=== PATIENT | male | born 1965 | race Caucasian/White ===

== ENCOUNTER 2021-07-10 10:57 | Outpatient (REF) | payer BC, SELFPAY | END 2021-07-10 10:58 | disposition home or self-care (01) | LOC: HO.WFDLDS 10:57 | PROVIDERS: Visit Provider Internal Medicine | DX: Z20.822 Contact with and (suspected) exposure to COVID-19 (principal) | CPT/HCPCS: C9803; U0003; U0005 ==

== ENCOUNTER 2024-12-29 07:29 | Day surgery (SDC) | payer BC, SELFPAY ==
--- OUTSIDE RECORDS SUMMARY | 2024-12-01 14:53 | XMS_ITS | Patient Health Record ---
Author Organization [facility] Address [address] [place] [address] Care Team Providers Care Guest Services Assistant Name Role Phone Geovanni LUCAS, Mango Primary Care Provider Unavailab Rogers Escobar Jr Unavailable Allergies Allergen (clinical drug ingredient) Drug/Non Drug Allergy documented on EMR Reaction Allergy Type Onset Date Status peanut allergenic extract Peanut (Diagnostic) Unknown Drug Allergy Active Reason For Referral Referring Provider First Name Mango Referring Provider Last Name Geovanni Referring Provider Speciality Internal M edicine Referred Organization [facility] Referred Provider Rogers Rojas Jr Referred Address [address] [facility],[place], [place],[address],[place] Referred Provider Specialty Gastroentero logy General Notes Gisele Fernandez 024 01:10:28 PM EST > called pt and requested he contact dr reid for an hmo blue referral for his visit with Dr. Rojas on 08-17-2023, Gisele Fernandez 07/21/2024 04:07:18 PM EST > REQUESTED HMO BLUE REFERRAL FROM DR REID'S OFFICE FOR VISIT WITH BOB Referral Priority Routine Referring Provider First Name Mango Referring Provider Last Name Geovanni Referring Provider Speciality Internal M edicine Referred Organization [facility] Referred Provider Rogers Rojas Jr Referred Address [address] [facility],[address],[place], [place],[address],[place] Referred Provider Specialty Gastroentero logy General Notes Gisele Fernandez 2024 01:56:46 PM >requested a new hmo blue referral from Dr. Reid for the appt on 11-30-[address] Rojas current ref expires 11-15-24, Jim Gisele 11/10/2024 10:32:47 AM >They stated they will fax a copy of the new referral which i am not able to retrieve in the bc/bs website, Jim Gisele 11/16/2024 10:16:27 AM > Dr. Reid's office sent an office referral and not an o blue referral. Spoke with Zaid and requested again Referral Priority Routine Medications Medication SIG (Take, Route, Frequency, Duration) Notes Start Date End Date Status amLODIPine Besylate 2.5 MG 1 tablet Orally Once a day Active Omeprazole 20 MG 1 capsule 1/2 to 1 h our before morning meal Orally Once a day as needed Active Immunizations Vaccine Route Administration Date Status Comme nts Influenza Unknown 11/30/2024 Refused Influenza Unknown 11/30/2024 Refused Social History Tobacco Use: Social History Observation Description Date Details (start date - stop date) Never Smoker NA - NA Tobacco Control (Standard) Question Answer Notes Tobacco use: Nonsmoker AUDIT-C (Standard) Question Answer Notes Did you have a drink contain ing alcohol in the past year? Yes How often did you have a dri nk containing alcohol in the past year? 2 to 4 times a month (2 points) How many drinks did you have on a typical day when you were drinking in the past year? 1 or 2 drinks (0 point) How often did you have six o r more drinks on one occasion in the past year? Never (0 point) Points 2 Interpretation Negative Problems Problem Type SNOMED Code ICD Code Onset Dates Problem Status W/U Status Risk Notes Problem Colon cancer screening (117609245) Colon cancer screening (Z12.11) Active confirmed Problem Erosive esophagitis (47827673) Erosive esophagitis (K22.10) Active confirmed Problem Gastroesophageal reflux disease (475804506) GERD (gastroesophag eal reflux disease) (K21.9) Active confirmed Problem Personal history of adenomatous and serrated colon polyps (Z86.0101) Active confirmed Vital Signs Temperature 98.7 degrees Fahrenheit 11/30/2024 Blood pressure diastolic 01 mm Hg 11/30/2024 Height 70 in 11/30/2024 Blood pressure systolic 001 mm Hg 11/30/2024 Weight 189 lbs 11/30/2024 BMI 27.12 kg/m2 11/30/2024 Encounters Encounter Location Date Provider Diagnosis [facility] [address] [place] [address] 11/30/2024 Rogers Bob Lozano GERD (gastroesophageal reflux disease) K21.9 ; Colon cancer screening Z12.11 ; Erosive esophagitis K22.10 and Personal history of adenomatous and serrated colon polyps Z86.0101 Assessments Encounter Date Diagnosis (ICD Code) Assessment Notes Treatment Notes Treatment Clinical Notes Section Notes 11/30/2024 Colon cancer screening (ICD-10 - Z12.11) We discussed gastroesophageal reflux disease today we discussed diet, lifestyle modifications, and treatment with proton pump inhibitors. He will continue his present regimen. Follow-up endoscopy will be arranged because of his history of erosive esophagitis to rule out underlying Huang's esophagus. He is due for colonoscopy. He is aware of risks and benefits of both procedures and understands and agrees to proceed. 11/30/2024 GERD (gastroesophage al reflux disease) (ICD-10 - K21.9) We discussed gastroesophageal reflux disease today we discussed diet, lifestyle modifications, and treatment with proton pump inhibitors. He will continue his present regimen. Follow-up endoscopy will be arranged because of his history of erosive esophagitis to rule out underlying Huang's esophagus. He is due for colonoscopy. He is aware of risks and benefits of both procedures and understands and agrees to proceed. 11/30/2024 Erosive esophagitis (ICD-10 - K22.10) We discussed gastroesophageal reflux disease today we discussed diet, lifestyle modifications, and treatment with proton pump inhibitors. He will continue his present regimen. Follow-up endoscopy will be arranged because of his history of erosive esophagitis to rule out underlying Huang's esophagus. He is due for colonoscopy. He is aware of risks and benefits of both procedures and understands and agrees to proceed. 11/30/2024 Personal history of adenomatous and serrated colon polyps (ICD-10 - Z86.0101) We discussed gastroesophageal reflux disease today we discussed diet, lifestyle modifications, and treatment with proton pump inhibitors. He will continue his present regimen. Follow-up endoscopy will be arranged because of his history of erosive esophagitis to rule out underlying Huang's esophagus. He is due for colonoscopy. He is aware of risks and benefits of both procedures and understands and agrees to proceed. Plan Of Treatment Future Test Test Name Order Date UPPER GI ENDOSCOPY 11/30/2024 COLONOSCOPY 11/30/2024 Next Appt Details Provider Name:Rogers Charlee atkinson Jr, 12/29/2024 10:00:00 AM, [address] [place] [address], [phone], Insurance Providers Payer Name Payer Address Payer Phone Subscriber Number Group Number Insured Name Patient Relationship to Insured Coverage Start Date Coverage End Date [facility] [employer] [address] [place] [address] [id number] DENIS GRECO Self - patient is the insured Medical (General) History Medical History History ICD Code high blood pressure Surgical History Surgery Date(Month/Year) back surgery
--- OUTSIDE RECORDS SUMMARY | 2024-12-01 14:53 | XMS_ITS ---
Author Organization [facility] Address [address] [facility] [address] [place] [address] Care Team Providers Care Community Engagement Manager Name Role Phone Mango Galarza MD Primary Care Provider Unavailab jace Rojas Jr, Rogers Unavailable REASON FOR VISIT Patient presents today for a colon recall Encounters Encounter Location Date Provider Diagnosis [facility] [address] [place] [phone] 08/17/2024 Rogers Rojas Jr Plan Of Treatment Next Appt Details Provider Name:Rogers atkinson Jr, 12/29/2024 10:00:00 AM, [address] [place] [address] , [place], [place], [phone], Progress Notes * DENIS GRECO JrDOB:07/1965 (58 yo M)Acc No.[id number]:08/17/2024 Progress Notes Patient:?DENIS GRECO r Provider:?Rogers Rojas MD :1965???Age:58 Y???Sex:Male Geovani e:08/17/2024 Address:[address] [facility] [phone] Pcp:Mango Galarza MD Subjective: * Chief Complaints: * ???1. Patient presents today for a colon recall. * Medical History:? Objective: * Vitals:? Assessment: Plan: * Treatment: * * The named appointment provid er may or may not be the originator of this progress note, and it is not deemed complete until electronically signed by the appointment provider. Sign off status: Pending * Provider:?Rogers Rojas MD Date:?0 08/17/2024 Generated for Ladarius gant/Bayron/Yuridia on:?12/01/2024 02:53 PM EDT
--- OUTSIDE RECORDS SUMMARY | 2024-12-01 14:53 | XMS_ITS ---
Author Organization [facility] Address [address] [place] [address] Care Team Providers Care Registered Pharmacist Name Role Phone Mango Galarza MD Primary Care Provider Unavailab Rogers Escobar Jr Unavailable [phone] Allergies Allergen (clinical drug ingredient) Drug/Non Drug Allergy documented on EMR Reaction Allergy Type Onset Date Status peanut allergenic extract Peanut (Diagnostic) Unknown Drug Allergy Active REASON FOR VISIT Patient presents today for a COLON SCREENING Medications Medication SIG (Take, Route, Frequency, Duration) [...] Problem Status W/U Status Risk Notes Problem Gastroesophageal reflux disease (399518103) GERD (gastroesophag eal reflux disease) (K21.9) Active confirmed Problem Colon cancer screening (737780649) Colon cancer screening (Z12.11) Active confirmed Problem Erosive esophagitis (85466245) Erosive esophagitis (K22.10) Active confirmed Problem Personal history of adenomatous and serrated colon polyps (Z86.0101) Active confirmed Vital Signs Temperature 98.7 degrees Fahrenheit 12/01/19 25 Blood pressure systolic 001 mm Hg 12/01/19 25 Blood pressure diastolic 01 mm Hg 025 Height 70 in 11/30/2024 Weight 189 lbs 11/30/2024 BMI 27.12 kg/m2 11/30/2024 Encounters Encounter Location Date Provider Diagnosis [facility] [address] [place] [address] 11/30/2024 Rogers Rojas Jr GERD (gastroesophageal reflux disease) K21.9 ; Colon cancer screening Z12.11 ; Erosive esophagitis K22.10 and Personal history of adenomatous and serrated colon polyps Z86.0101 Assessments Encounter Date Diagnosis (ICD Code) Assessment Notes Treatment Notes Treatment Clinical Notes Section Notes 11/30/2024 GERD (gastroesophage al reflux disease) (ICD-10 [...] and understands and agrees to proceed. 11/30/2024 Colon cancer screening (ICD-10 - Z12.11) [...] ENDOSCOPY 11/30/2024 COLONOSCOPY 11/30/2024 Next Appt Details Follow Up: 1 Year, Reason: Provider Name:Rogers atkinson Jr, 12/29/2024 10:00:00 AM, [address] [place] [address], [phone], Progress Notes * DENIS GRECO JrDOB:07/1965 (58 yo M)Acc No.[id number]:11/30/2024 Progress Notes Patient:?DENIS GRECO J r Provider:?Rogers Rojas MD :1965???Age:58 Y???Sex:Male Geovani e:11/30/2024 Address:[address] [place], [place] [phone] Pcp:Mango Galarza MD Subjective: * Chief Complaints: * ???1. Patient presents today for a COLON SCREENING. * HPI: ???New symptom(s):? The patient is a pleasant 58-year-old man seen today in consultation at the request of his primary care provider. He has a history of gastroesophageal reflux disease and has been on omeprazole for control of his symptoms for years. He estimates he uses this approximately 10 days/month. He has no complaints of dysphagia, hematemesis, or melena. Spicy foods and soda seem to make symptoms worse. Review of outside records indicate that he had an upper endoscopy with erosive esophagitis, nodule antrum, and normal duodenum. This was done in 2018. Colonoscopy at the same time showed a small polyp. This was a tubular adenoma. Random biopsies were negative for microscopic colitis. We reviewed this today. He has no complaints of rectal bleeding or change in his bowel habits. * ROS:?General/Constitutional:?Change in appetite?denies.?Fatigue?denies.?ENT:?Patient denies?difficulty swallowing.?Respiratory:?Patient denies?shortness of breath.?Cardiovascular:?Patient denies?chest pain.?Gastrointestinal:?Comments?See HPI for details.?Genitourinary:?Difficulty urinating?denies.?Incontinence?denies.?Musculoskeletal:?Patient denies?muscle aches.?Skin:?Patient denies?pruritis.?Neurologic:?Patient denies?low back pain.?Psychiatric:?Patient denies?mental or physical abuse.? * Medical History:?High blood pressure. * Surgical History:?back surge ry . * Family History:?Father: dece ased.?Mother: .? No family history of colon cancer or liver cancer. * Social History:?Tobacco Use:?Tobacco Control (Standard)?Tobacco use:?Nonsmoker.?Miscellaneous:?Marital status: . Occupation: works full-time sales. ???Drug/Alcohol:?AUDIT-C (Standard)?Did you have a drink containing alcohol in the past year??Yes,?How often did you have a drink containing alcohol in the past year??2 to 4 times a month (2 points),?How many drinks did you have on a typical day when you were drinking in the past year??1 or 2 drinks (0 point),?How often did you have six or more drinks on one occasion in the past year??Never (0 point),?Points?2,?Interpretation?Negative.? * Medications:?Taking Omeprazo le 20 MG Capsule Delayed Release 1 capsule 1/2 to 1 hour before morning meal Orally Once a day , Notes to Pharmacist: as needed, Taking amLODIPine Besylate 2.5 MG Tablet 1 tablet Orally Once a day , Medication List reviewed and reconciled with the patient * Allergies:?Peanut (Diagnosti c): Allergy - Criticality High. Objective: * Vitals:?Wt:189lbs, Ht: 70 in , BMI:27.12Index, BP:001/01mm Hg, Temp:98.7, Ht-cm: 177.8, Wt-k.73. * Examination: ???General Examination: ?GENERAL APPEARANCE:?in no acute distress.?HEAD:?normocephalic.?EYES:?sclera non-icteric.?ORAL CAVITY:?mucosa moist.?NECK/THYROID:?no lymphadenopathy.?SKIN:?anicteric.?HEART:?S1, S2 normal, no murmurs.?LUNGS:?clear to auscultation bilaterally.?CHEST:?normal shape and expansion.?ABDOMEN:?soft, nontender, nondistended, bowel sounds present, no organomegaly .?EXTREMITIES:?no clubbing, cyanosis, or edema.?PSYCH:?cognitive function intact.? Assessment: * Assessment: 1.?GERD (gastroesophageal re flux disease) - K21.9 (Primary)???2.?Colon cancer screening - Z12.11???3.?Erosive esophagitis - K22.10???4.?Personal history of adenomatous and serrated colon polyps - Z86.0101??? We discussed gastroesophagea l reflux disease today we discussed diet, lifestyle modifications, and treatment with proton pump inhibitors. He will continue his present regimen. Follow-up endoscopy will be arranged because of his history of erosive esophagitis to rule out underlying Huang's esophagus. He is due for colonoscopy. He is aware of risks and benefits of both procedures and understands and agrees to proceed. Plan: * Treatment: 2.?Colon cancer screening?Procedure: COLONOSCOPY (Ordered for 11/30/2024)* sched for 12/29/24 at 10:00 a mmacmiralax * Immunizations:? Influenza (Not administered - Refused: Patient decision)??? Influenza (Not administered - Refused: Patient decision) * Procedure Codes:?3017F COLOR ECTAL CA SCREEN DOC REV, G9903 Pt scrn tbco id as non user, G8785 BP SCR NOT PRFRM REC REASON NOS * Preventive Medicine:? ??Counseling:?Care goal follow-up plan:?Above Normal BMI Follow-up?Dietary management education, guidance, and counseling,?BMI management provided?Yes.? * Follow Up:?1 Year * * Sign off status: Completed true * Provider:?Rogers Rojas MD Date:?0 11/30/2024 Generated for Ladarius gant/Bayron/eTransmitting on:?12/01/2024 02:53 PM EDT History and Physical Notes * HPI (History of Present Illness) Category Sub-Category Detail Notes Category Not es New symptom(s) The patient is a pleasant 58-year-old man seen today in consultation at the request of his primary care provider. He has a history of gastroesophageal reflux disease and has been on omeprazole for control of his symptoms for years. He estimates he uses this approximately 10 days/month. He has no complaints of dysphagia, hematemesis, or melena. Spicy foods and soda seem to make symptoms worse. Review of outside records indicate that he had an upper endoscopy with erosive esophagitis, nodule antrum, and normal duodenum. This was done in 2018. Colonoscopy at the same time showed a small polyp. This was a tubular adenoma. Random biopsies were negative for microscopic colitis. We reviewed this today. He has no complaints of rectal bleeding or change in his bowel habits. Examination Category Sub-Category Detail Notes Category Not es General Examination GENERAL APPEARANCE: in no acute di stress HEAD: normocephalic EYES: sclera non-icteric NECK/THYROID: no lymphadenopathy HEART: S1, S2 normal, no mu rmurs CHEST: normal shape and exp ansion LUNGS: clear to auscultatio n bilaterally ABDOMEN: soft, nontender, non distended, bowel sounds present, no organomegaly SKIN: anicteric EXTREMITIES: no clubbing, cyanosi s, or edema PSYCH: cognitive function i ntact ORAL CAVITY: mucosa moist
[2024-12-25 14:13] VITALS: BMI 27.1
--- NOTE | 2024-12-28 10:26 | P.CONAN_ITS ---
Documented by User: Ronna Fitzgerald NP 12/28/24 10:27 HPI - Anesthesia Eval Consult details Narrative: 59yo M for Upper Endoscopy and Colonoscopy [facility] Active Problems Active Problems: All Active Problems Periorbital cellulitis (Acute) Eye irritation (Acute) Past Medical History Medical History HTN (hypertension) GERD (gastroesophageal reflux disease) Surgical History Surgical History Hx of colonoscopy History of esophagogastroduodenoscopy (EGD) History of back surgery Social History Social History Are you a primary respiratory care program director to a significant other at home: No Do you presently have visiting nurse or other home services: No Patient Tobacco Use Status: Never used Tobacco Use of substances other than those prescribed or required for medical reasons: No Have you been hit, kicked, punched, or otherwise hurt by someone within the past year? If so, by whom?: No Advance Directives: No Advance Directives Information Provided: Yes Poor oral hygiene: No Meds Allergies Allergy/AdvReac Type Severity Reaction Status Date / Time peanut [PEANUT] Allergy Severe ANAPHYLAXIS Verified 12/29/24 08:29 Home Medications ?Medication ?Instructions ?Recorded ?Confirmed ?Last Taken ?Type amlodipine 2.5 mg tablet 2.5 mg PO DAILY 12/25/24 12/25/24 Unknown History omeprazole 20 mg capsule,delayed 20 mg PO DAILY 12/25/24 12/25/24 Unknown History release Exam Height,Weight and Vital Signs: Height 5 ft 10 in Weight 85.729 kg Assessment and Plan Assessment Anesthesia Assessment: Chart Reviewed Documented by User: Regine Guillory MD 12/29/24 09:21 PMFSH Past Medical History Medical History HTN (hypertension) GERD (gastroesophageal reflux disease) Surgical History Surgical History Hx of colonoscopy History of esophagogastroduodenoscopy (EGD) History of back surgery History of Problems with Anesthesia: No Social History Social History Are you a primary respiratory care program director to a significant other at home: No Do you presently have visiting nurse or other home services: No Patient Tobacco Use Status: Never used Tobacco Use of substances other than those prescribed or required for medical reasons: No Have you been hit, kicked, punched, or otherwise hurt by someone within the past year? If so, by whom?: No Advance Directives: No Advance Directives Information Provided: Yes Poor oral hygiene: No Meds Allergies Allergy/AdvReac Type Severity Reaction Status Date / Time peanut [PEANUT] Allergy Severe ANAPHYLAXIS Verified 12/29/24 08:29 Home Medications ?Medication ?Instructions ?Recorded ?Confirmed ?Last Taken ?Type amlodipine 2.5 mg tablet 2.5 mg PO DAILY 12/25/24 12/25/24 Unknown History omeprazole 20 mg capsule,delayed 20 mg PO DAILY 12/25/24 12/25/24 Unknown History release Exam Airway Mallampati Class: III TM Dist: >3cm Neck ROM: Full Loose/Missing/Broken Teeth: No Heart: RRR Lungs: CTA Assessment and Plan Assessment Anesthesia Assessment: Anesthesia Plan Discussed Final Anesthetic Review History of Problems with Anesthesia: No NPO: Yes ASA Class: II Final Preanesthetic Review: Meds/Allgs Chart Reviewed, Consent Obtained/Reviewed and Anes Risks/Benef Reviewed Patient Risk: Low Procedure Risk: Intermediate Anesthetic Plan Anesthetic Plan: MAC: Disposition: Standard PACU
[2024-12-29 08:30] VITALS: BP 144/87; PULSE 69; RESP 12; TEMP 36.7; O2SAT 98; BMI 26.3
[2024-12-29] MEDS: Lactated Ringers 1,000 ML 100 ML IVCONT (08:44)
--- NOTE | 2024-12-29 09:23 | MHC.SHP ---
Pre-Procedural Eval Section A - 24 Hr Update-Section A only Date of Service: 12/29/24 The patient is an INPATIENT: No Changes since office visit: No Cold of Flu in the past 2 weeks, No New Medical Problems, No Changes in Medication and No Patient answered all questions The patient has been examined within 24 hours of the surgical procedure. The History & Physical has been completed within 30 days and I have reviewed it.: Yes Section B - Complete if H&P > 30 days Chief Complaint: gerd,screening Allergies: Allergies Allergy/AdvReac Type Severity Reaction Status Date / Time peanut [PEANUT] Allergy Severe ANAPHYLAXIS Verified 12/29/24 08:29 Plan I have reviewed the history and physical and performed a pertinent physical examination on my patient. No changes have occurred unless specified. Time Spent With Patient Time: Total time managing care of this patient today ____ minutes.
[2024-12-29 10:17] VITALS: BP 114/73; PULSE 71; RESP 18; TEMP 36.1
[2024-12-29 10:32] VITALS: BP 127/77; PULSE 61; RESP 16; TEMP 36.1; O2SAT 99
--- NOTE | 2024-12-29 11:09 | OP_ITS ---
DATE OF SERVICE: 12/29/2024 SURGEON: Rogers Rojas MD INDICATIONS: 1. Gastroesophageal reflux disease. 2. Colon cancer screening. PREOPERATIVE DIAGNOSIS: POSTOPERATIVE DIAGNOSIS: PROCEDURE PERFORMED: Upper endoscopy with biopsy, colonoscopy to the terminal ileum. ESTIMATED BLOOD LOSS: COMPLICATIONS: ANESTHESIA: Monitored anesthesia care. ASSISTANTS: SPECIMENS: PROCEDURE IN DETAIL: History and physical were performed. The risks and benefits of the procedure were explained to the patient. Informed consent was obtained. The patient was placed in the left lateral decubitus position. The Olympus video gastroscope was introduced into the esophagus, stomach, and duodenum. Examination was performed. The scope was removed. He was repositioned for colonoscopy. A digital rectal exam was performed and was found to be normal. The Olympus pediatric video colonoscope was introduced into the rectum and advanced to the cecum. The cecum was identified by transillumination, palpation, and identification of ileocecal valve. Examination was performed. The scope was removed. He tolerated the procedure well and was returned to recovery room in stable condition. FINDINGS: Upper endoscopy: 1. Esophagus: The esophagus was normal. There was an irregular EG junction. This was biopsied. 2. Stomach: The stomach showed no evidence of masses, ulcers, or polyps. Antral biopsies were obtained to evaluate for H pylori. 3. Duodenum: The bulb and 2nd portion were normal. Colonoscopy: The terminal ileum was examined and appeared normal. The visualized colonic mucosa was normal. The quality of prep was good. No polyps were identified. Retroflexed examination showed small internal hemorrhoids and some hypertrophic anal papillae. IMPRESSION: 1. Gastroesophageal reflux disease. 2. Normal colonoscopy. RECOMMENDATION: 1. Follow up the biopsy results. 2. Repeat colonoscopy is recommended in 10 years for average-risk individuals. MD KEVIN Washington/MODL / [id number]
== END 2024-12-29 10:52 | disposition home or self-care (01) ==
PROVIDERS: PCP Internal Medicine; Visit Provider Internal Medicine Gastroenterology
PROC: (CPT 45378; principal; 2024-12-29 09:10)
DX: Z12.11 Encounter for screening for malignant neoplasm of colon (principal); Z86.0101 Personal history of adenomatous and serrated colon polyps; K64.8 Other hemorrhoids; K62.89 Other specified diseases of anus and rectum; K21.9 Gastro-esophageal reflux disease without esophagitis; K22.10 Ulcer of esophagus without bleeding; K29.50 Unspecified chronic gastritis without bleeding; I10 Essential (primary) hypertension; Z79.899 Other long term (current) drug therapy; Z91.010 Allergy to peanuts; Z98.890 Other specified postprocedural states
CPT/HCPCS: 45378; 43239; 88305; 88313; 88342; J2003; J2704